=== PATIENT | male | born 1985 | race Caucasian/White ===

== ENCOUNTER 2017-11-01 18:39 | Emergency (ER) | payer OTHER ==
[~2017-11-01] VITALS: Ht 185.4 cm; Wt 108.9 kg
[~2017-11-01 18:39] MED LIST: AMOCLA875 PO; ANTOXYBENA LEFTEAR; BUTASPCAFT; CEPH500 PO; CYCL10 PO; Esgic Tablet1 EACH PO; HYDACE5 PO; HYDACE5325 PO; HYDR1TAB94 PO; IBUP600 PO; IBUP800; IBUP800 PO; ISODICACE PO; NAPR500 PO; Naprosyn500 MG PO; OXYACE5T PO; Omeprazole20 M1 PO; PENVK500; Percocet 5-3251 EACH PO; RXHYD5325 PO; SULTRIDS PO; SUMA6I; [UNRECOGNIZED DRUG - OTHER]; [UNRECOGNIZED DRUG - REMARK]
[2017-11-01] MEDS ORDERED: Citalopram HBr10 MG PO (19:16)
[2018-04-07] MEDS ORDERED: Protonix40 MG PO (13:34)
[2018-05-31] MEDS ORDERED: Norco 5-325 Ta1 EACH PO (18:44)
[2018-05-31] MEDS ORDERED: Silvadene20 GM TOP (18:44)
[2018-09-19] MEDS ORDERED: CITA20 PO (19:37)
[2018-09-19] MEDS ORDERED: Zofran Odt4 MG PO (22:52)
[2018-09-19] MEDS ORDERED: Esgic Tablet1 EACH PO (22:52)
[2018-10-02] MEDS ORDERED: Inderal60 MG (20:14)
== END 2017-11-01 20:45 | disposition home or self-care (01) ==
LOC: ER 18:39
DX: G43.909 Migraine, unspecified, not intractable, without status migrainosus (principal); Z88.8 Allergy status to other drugs, medicaments and biological substances; Z79.899 Other long term (current) drug therapy
CPT/HCPCS: 36415; 96361; 96374; 96375; 99283; J1200; J1885; J2765; J7030

== ENCOUNTER 2019-04-17 21:05 | Emergency (ER) | payer OTHER ==
[~2019-04-17] VITALS: Ht 185.4 cm; Wt 104.3 kg
[~2019-04-17 21:05] MED LIST changes: +CITA20 PO; +Citalopram HBr10 MG PO; +Inderal60 MG; +Norco 5-325 Ta1 EACH PO; +Protonix40 MG PO; +Silvadene20 GM TOP; +Zofran Odt4 MG PO
[2019-04-17] MEDS ORDERED: Esgic Tablet1 EACH PO (21:19)
[2019-04-17] MEDS ORDERED: NAPR500 PO (21:19)
[2019-04-17] MEDS ORDERED: CYCL10 PO (23:21)
== END 2019-04-17 23:37 | disposition home or self-care (01) ==
LOC: ER 21:05
DX: S39.012A Strain of muscle, fascia and tendon of lower back, initial encounter (principal); S46.911A Strain of unspecified muscle, fascia and tendon at shoulder and upper arm level, right arm, initial encounter; Z88.8 Allergy status to other drugs, medicaments and biological substances; X50.9XXA Other and unspecified overexertion or strenuous movements or postures, initial encounter
CPT/HCPCS: 71101; 72100; 73030; 99283-25; A9270

== ENCOUNTER 2019-04-30 10:20 | Emergency (ER) | payer OTHER ==
[~2019-04-30] VITALS: Ht 185.4 cm; Wt 104.3 kg
[2019-04-30] MEDS ORDERED: METPRE4DP PO (12:30)
== END 2019-04-30 12:35 | disposition home or self-care (01) ==
LOC: ER 10:20
DX: M54.12 Radiculopathy, cervical region (principal); Z88.8 Allergy status to other drugs, medicaments and biological substances; Z79.899 Other long term (current) drug therapy; G43.909 Migraine, unspecified, not intractable, without status migrainosus
CPT/HCPCS: 72125; 99285-25

== ENCOUNTER 2019-05-23 21:34 | Emergency (ER) | payer OTHER ==
[~2019-05-23] VITALS: Ht 185.4 cm; Wt 104.3 kg
[~2019-05-23 21:34] MED LIST changes: +METPRE4DP PO
[2019-05-23] MEDS ORDERED: Keflex500 MG PO (23:26)
== END 2019-05-23 23:47 | disposition home or self-care (01) ==
LOC: ER 21:34
DX: S62.635B Displaced fracture of distal phalanx of left ring finger, initial encounter for open fracture (principal); W22.8XXA Striking against or struck by other objects, initial encounter; Z88.8 Allergy status to other drugs, medicaments and biological substances; Z79.899 Other long term (current) drug therapy; G43.909 Migraine, unspecified, not intractable, without status migrainosus
CPT/HCPCS: 73130; 99283-25

== ENCOUNTER 2019-10-23 17:59 | Emergency (ER) | payer OTHER ==
[~2019-10-23] VITALS: Ht 185.4 cm; Wt 100.2 kg
[~2019-10-23 17:59] MED LIST changes: +Keflex500 MG PO
[2019-10-23 18:34] LABS: BASOPHILS ABSOLUTE AUTO 0.05 K/mm3 (0.00-0.23); BASOPHILS PERCENT AUTO 1 % (0-2); EOSINOPHILS ABSOLUTE AUTO 0.18 K/mm3 (0.00-0.68); EOSINOPHILS PERCENT AUTO 2 % (0-6); Hematocrit 46.8 % (37.0-53.0); Hemoglobin 15.5 g/dL (13.5-17.5); IMMATURE GRAN ABSOLUTE AUTO 0.02 K/mm3 (0.00-0.10); IMMATURE GRAN PERCENT AUTO 0 % (0-1); LYMPHOCYTES ABSOLUTE AUTO 2.35 K/mm3 (0.84-5.20); LYMPHOCYTES PERCENT AUTO 26 % (21-46); MONOCYTES ABSOLUTE AUTO 0.68 K/mm3 (0.16-1.47); MONOCYTES PERCENT AUTO 8 % (4-13); Mean Corpuscular HGB 28.2 pg (26.0-34.0); Mean Corpuscular HGB Conc 33.1 g/dL (31.5-36.5); Mean Corpuscular Volume 85 fL (80-100); Mean Platelet Volume 10.1 fL (9.1-12.4); NEUTROPHILS ABSOLUTE AUTO 5.84 K/mm3 (1.96-9.15); NEUTROPHILS PERCENT AUTO 64 % (41-73); Platelet Count 218 K/mm3 (150-400); RDW Coefficient Variation 12.7 % (11.7-14.2); RDW Standard Deviation 39.1 fL (35.1-46.3); White Blood Cell Count 9.12 K/mm3 (4.00-11.30)
[2019-10-23 18:57] LABS: Alanine Aminotransfer (ALT/SGP 43 U/L (12-78); Albumin, Blood 4.2 g/dL (3.4-5.0); Albumin/Globulin Ratio 1.2 (0.8-1.8); Alk Phos 78 U/L (50-136); Anion Gap 6 mmol/L (6-16); Aspartate Aminotrans (AST/SGOT 27 U/L (12-37); Bilirubin, Total 0.5 mg/dL (0.1-1.0); Blood Urea Nitrogen 27 mg/dL (8-24); Bun/Creatinine Ratio 24.5 (12.0-20.0); CO2, Blood 24 mmol/L (21-32); Calcium, Blood 8.8 mg/dL (8.5-10.1); Chloride, Blood 110 mmol/L (98-108); Globulin, Blood 3.6 g/dL (2.2-4.0); Glomerular Filtration Rate >60 (60-); Glucose, Blood 76 mg/dL (70-99); Potassium, Blood 3.9 mmol/L (3.5-5.5); Sodium, Blood 140 mmol/L (136-145); Total Protein, Blood 7.8 g/dL (6.4-8.2); Troponin I <0.015 ng/mL (0.000-0.040)
[2019-10-23] MEDS ORDERED: Ultram50 MG PO (21:40)
[2019-10-23] MEDS ORDERED: IBUP800 PO (21:40)
[2019-10-23] MEDS ORDERED: METPRE4DP PO (21:40)
== END 2019-10-23 22:04 | disposition home or self-care (01) ==
LOC: ER 17:59
PROVIDERS: Physician Assistant
DX: M54.14 Radiculopathy, thoracic region (principal); G43.909 Migraine, unspecified, not intractable, without status migrainosus; Z88.8 Allergy status to other drugs, medicaments and biological substances
CPT/HCPCS: 36415; 71046; 80053; 84484; 85025; 93005; 93010; 96374; 96375; 99285-25; J1885; J2270; J2405

== ENCOUNTER 2020-04-22 22:45 | Emergency (ER) | payer OTHER ==
[~2020-04-22] VITALS: Ht 185.4 cm; Wt 99.8 kg
[~2020-04-22 22:45] MED LIST changes: +Citalopram HBr20 MG; +Prednisone20 MG PO; +TOPI15C; +Ultram50 MG PO
[2020-04-22 23:51] LABS: Source, Urine Clean Catch
[2020-04-22 23:55] LABS: Bilirubin, Urine Neg (Neg); Blood, Urine 1+ (Neg); Glucose Qualitative, Urine Neg (Neg); Ketones, Urine Neg (Neg); Leukocyte Esterase, Urine 1+ (Neg); Nitrite, Urine Neg (Neg); Protein, Urine 2+ (Neg); Specific Gravity, Urine 1.025 (1.003-1.022); Urobilinogen, Urine NORM (Normal)
[2020-04-22 23:56] LABS: Appearance, Urine Clear (Clear); Color, Urine Yellow (P-Yellow)
[2020-04-23 00:02] LABS: Red Blood Cells, Urine 0-2 /hpf (0-2); Squamous Epithelial Cells Not Seen /hpf (Few)
[2020-04-23 00:03] LABS: Bacteria Mod /hpf; Mucus Heavy (0-Heavy)
[2020-04-23 00:34] LABS: BASOPHILS ABSOLUTE AUTO 0.04 K/mm3 (0.00-0.23); BASOPHILS PERCENT AUTO 1 % (0-2); EOSINOPHILS ABSOLUTE AUTO 0.32 K/mm3 (0.00-0.68); EOSINOPHILS PERCENT AUTO 5 % (0-6); Hematocrit 44.3 % (37.0-53.0); Hemoglobin 14.7 g/dL (13.5-17.5); IMMATURE GRAN ABSOLUTE AUTO 0.01 K/mm3 (0.00-0.10); IMMATURE GRAN PERCENT AUTO 0 % (0-1); LYMPHOCYTES ABSOLUTE AUTO 2.59 K/mm3 (0.84-5.20); LYMPHOCYTES PERCENT AUTO 36 % (21-46); MONOCYTES ABSOLUTE AUTO 0.65 K/mm3 (0.16-1.47); MONOCYTES PERCENT AUTO 9 % (4-13); Mean Corpuscular HGB 28.4 pg (26.0-34.0); Mean Corpuscular HGB Conc 33.2 g/dL (31.5-36.5); Mean Corpuscular Volume 86 fL (80-100); Mean Platelet Volume 10.4 fL (9.1-12.4); NEUTROPHILS ABSOLUTE AUTO 3.51 K/mm3 (1.96-9.15); NEUTROPHILS PERCENT AUTO 49 % (41-73); Platelet Count 220 K/mm3 (150-400); RDW Coefficient Variation 12.2 % (11.7-14.2); RDW Standard Deviation 38.3 fL (35.1-46.3); Red Blood Cell Count 5.17 M/mm3 (4.30-5.90); White Blood Cell Count 7.12 K/mm3 (4.00-11.30)
[2020-04-23 00:55] LABS: Alanine Aminotransfer (ALT/SGP 40 U/L (12-78); Albumin, Blood 4.2 g/dL (3.4-5.0); Albumin/Globulin Ratio 1.2 (0.8-1.8); Alk Phos 74 U/L (50-136); Anion Gap 4 mmol/L (6-16); Aspartate Aminotrans (AST/SGOT 25 U/L (12-37); Bilirubin, Total 0.2 mg/dL (0.1-1.0); Blood Urea Nitrogen 20 mg/dL (8-24); CO2, Blood 28 mmol/L (21-32); Calcium, Blood 8.9 mg/dL (8.5-10.1); Chloride, Blood 110 mmol/L (98-108); Creatinine, Blood 0.95 mg/dL (0.60-1.20); Globulin, Blood 3.5 g/dL (2.2-4.0); Glomerular Filtration Rate >60 (60-); Glucose, Blood 71 mg/dL (70-99); Potassium, Blood 3.7 mmol/L (3.5-5.5); Sodium, Blood 142 mmol/L (136-145); Total Protein, Blood 7.7 g/dL (6.4-8.2)
== END 2020-04-23 03:06 | disposition home or self-care (01) ==
LOC: ER 22:45
PROVIDERS: Physician Assistant
DX: R10.9 Unspecified abdominal pain (principal); Z88.8 Allergy status to other drugs, medicaments and biological substances; Z79.899 Other long term (current) drug therapy; G43.909 Migraine, unspecified, not intractable, without status migrainosus
CPT/HCPCS: 36415; 76770; 80053; 81001; 83690; 85025; 87086; 99284-25

== ENCOUNTER 2020-10-26 22:36 | Emergency (ER) | payer OTHER ==
[~2020-10-26] VITALS: Ht 185.4 cm; Wt 104.3 kg
[2020-10-27] MEDS ORDERED: IBUP800 PO (01:27)
[2020-10-27] MEDS ORDERED: Norco 5-325 Ta1 EACH PO (01:27)
== END 2020-10-27 01:39 | disposition home or self-care (01) ==
LOC: ER 22:36
DX: M54.2 Cervicalgia (principal); Z88.8 Allergy status to other drugs, medicaments and biological substances; Z79.899 Other long term (current) drug therapy
CPT/HCPCS: 72125; 96374; 96375; 99283-25; J1885; J2270; J2550

== ENCOUNTER 2020-10-27 14:15 | Emergency (ER) | payer OTHER ==
[~2020-10-27] VITALS: Ht 185.4 cm; Wt 104.3 kg
== END 2020-10-27 17:43 | disposition home or self-care (01) ==
LOC: ER 14:15
DX: G43.909 Migraine, unspecified, not intractable, without status migrainosus (principal); Z88.2 Allergy status to sulfonamides; Z79.899 Other long term (current) drug therapy
CPT/HCPCS: 96374; 96375; 99284-25; J0780; J1100; J1170; J1200; J1885; J7030

== ENCOUNTER 2020-12-14 22:40 | Emergency (ER) | payer OTHER ==
[~2020-12-14] VITALS: Ht 185.4 cm; Wt 113.4 kg
[~2020-12-14 22:40] MED LIST changes: -Citalopram HBr20 MG; +Citalopram HBr20 MG PO
[2020-12-15] MEDS ORDERED: BUTALB-ACETAMI1 EAC5 PO (00:34)
== END 2020-12-15 02:10 | disposition home or self-care (01) ==
LOC: ER 22:40
DX: G43.909 Migraine, unspecified, not intractable, without status migrainosus (principal); Z88.5 Allergy status to narcotic agent; Z79.899 Other long term (current) drug therapy
CPT/HCPCS: 96372; 99283; J0780; J1200; J1885

== ENCOUNTER 2021-01-18 13:01 | Emergency (ER) | payer OTHER ==
[~2021-01-18] VITALS: Ht 185.4 cm; Wt 106.6 kg
[~2021-01-18 13:01] MED LIST changes: +BUTALB-ACETAMI1 EAC5 PO
== END 2021-01-18 15:55 | disposition home or self-care (01) ==
LOC: ER 13:01
DX: G43.909 Migraine, unspecified, not intractable, without status migrainosus (principal)
CPT/HCPCS: 70450; 96361; 96374; 96375; 99284-25; J0780; J1100; J1200; J1885; J2060; J7030

== ENCOUNTER 2021-01-18 19:37 | Emergency (ER) | payer OTHER ==
[~2021-01-18] VITALS: Ht 185.4 cm; Wt 108.9 kg
[2021-01-18 20:29] LABS: Alanine Aminotransfer (ALT/SGP 44 U/L (12-78); Albumin, Blood 4.4 g/dL (3.4-5.0); Albumin/Globulin Ratio 1.2 (0.8-1.8); Alk Phos 83 U/L (50-136); Anion Gap 5 mmol/L (6-16); Aspartate Aminotrans (AST/SGOT 30 U/L (12-37); Bilirubin, Total 0.3 mg/dL (0.1-1.0); Blood Urea Nitrogen 19 mg/dL (8-24); Bun/Creatinine Ratio 26.3 (12.0-20.0); CO2, Blood 26 mmol/L (21-32); Calcium, Blood 9.4 mg/dL (8.5-10.1); Chloride, Blood 107 mmol/L (98-108); Creatinine, Blood 0.72 mg/dL (0.60-1.20); Globulin, Blood 3.7 g/dL (2.2-4.0); Glomerular Filtration Rate >60 (60-); Glucose, Blood 151 mg/dL (70-99); Potassium, Blood 4.6 mmol/L (3.5-5.5); Sodium, Blood 138 mmol/L (136-145); Total Protein, Blood 8.1 g/dL (6.4-8.2)
[2021-01-18 21:25] LABS: BASOPHILS ABSOLUTE AUTO 0.01 K/mm3 (0.00-0.23); BASOPHILS PERCENT AUTO 0 % (0-2); EOSINOPHILS PERCENT AUTO 0 % (0-6); Hematocrit 45.1 % (37.0-53.0); Hemoglobin 15.3 g/dL (13.5-17.5); IMMATURE GRAN ABSOLUTE AUTO 0.03 K/mm3 (0.00-0.10); IMMATURE GRAN PERCENT AUTO 0 % (0-1); LYMPHOCYTES ABSOLUTE AUTO 0.61 K/mm3 (0.84-5.20); LYMPHOCYTES PERCENT AUTO 6 % (21-46); MONOCYTES ABSOLUTE AUTO 0.09 K/mm3 (0.16-1.47); MONOCYTES PERCENT AUTO 1 % (4-13); Mean Corpuscular HGB 27.9 pg (26.0-34.0); Mean Corpuscular HGB Conc 33.9 g/dL (31.5-36.5); Mean Corpuscular Volume 82 fL (80-100); Mean Platelet Volume 10.5 fL (9.1-12.4); NEUTROPHILS ABSOLUTE AUTO 9.63 K/mm3 (1.96-9.15); NEUTROPHILS PERCENT AUTO 93 % (41-73); Platelet Count 200 K/mm3 (150-400); RDW Standard Deviation 36.5 fL (35.1-46.3); Red Blood Cell Count 5.48 M/mm3 (4.30-5.90); White Blood Cell Count 10.37 K/mm3 (4.00-11.30)
== END 2021-01-18 23:16 | disposition left against medical advice (07) ==
LOC: ER 19:37
PROVIDERS: Emergency Medicine
DX: R51.9 Headache, unspecified (principal); R50.9 Fever, unspecified; Z53.20 Procedure and treatment not carried out because of patient's decision for unspecified reasons
CPT/HCPCS: 36415; 71045; 80053; 85025; 96361; 96374; 96375; 99283-25; A9270; J0780; J1200; J1885; J7030

== ENCOUNTER → 2021-01-25 | Outpatient (CLI) | payer OTHER ==
[~2021-01-25] MED LIST changes: +TOPI50
[2021-01-27 16:24] LABS: CORONAVIRUS (COVID19) CSH-NRL Negative (Negative)
== END | disposition home or self-care (01) ==
LOC: LAB SHORT 17:58 → LAB 17:58
PROVIDERS: Physician Assistant Medical
DX: J01.90 Acute sinusitis, unspecified (principal); Z20.822 Contact with and (suspected) exposure to COVID-19
CPT/HCPCS: U0003

== ENCOUNTER 2021-02-17 00:19 | Emergency (ER) | payer OTHER ==
[~2021-02-17] VITALS: Ht 185.4 cm; Wt 108.0 kg
[~2021-02-17 00:19] MED LIST changes: -TOPI50
[2021-02-17] MEDS ORDERED: TOPI50 (01:14)
== END 2021-02-17 02:58 | disposition home or self-care (01) ==
LOC: ER 00:19
DX: S06.0X0A Concussion without loss of consciousness, initial encounter (principal); Z88.8 Allergy status to other drugs, medicaments and biological substances; Z88.5 Allergy status to narcotic agent; Z79.899 Other long term (current) drug therapy; W03.XXXA Other fall on same level due to collision with another person, initial encounter; Y93.72 Activity, wrestling
CPT/HCPCS: 99283

== ENCOUNTER → 2021-12-23 | Outpatient (CLI) | payer OTHER ==
[~2021-12-23] MED LIST changes: +MULTIPLE VITAM1 EACH PO; +Robaxin750 MG PO; +TOPI50
== END | disposition home or self-care (01) ==
LOC: LAB 19:10 → LAB SHORT 19:10
DX: L02.01 Cutaneous abscess of face (principal)
CPT/HCPCS: 87070; 87075; 87077; 87147; 87186; 87205

== ENCOUNTER 2022-05-01 21:51 | Emergency (ER) | payer OTHER ==
[~2022-05-01] VITALS: Ht 185.4 cm; Wt 102.5 kg
[2022-05-02] MEDS ORDERED: OXYC5 PO (00:24)
== END 2022-05-02 01:17 | disposition home or self-care (01) ==
LOC: ER 21:51
DX: S53.125A Posterior dislocation of left ulnohumeral joint, initial encounter (principal); S53.135A Medial dislocation of left ulnohumeral joint, initial encounter; X58.XXXA Exposure to other specified factors, initial encounter; Y93.72 Activity, wrestling
CPT/HCPCS: 73070; 73080; A9270; J1170; J2405; J2704; J7030

== ENCOUNTER 2023-05-21 22:56 | Emergency (ER) | payer OTHER ==
[~2023-05-21] VITALS: Ht 185.4 cm; Wt 99.8 kg
[~2023-05-21 22:56] MED LIST changes: +OXYC5 PO
[2023-05-22 01:00] VITALS: BP 132/97
== END 2023-05-22 01:37 | disposition home or self-care (01) ==
LOC: ER 22:56
DX: M26.602 Left temporomandibular joint disorder, unspecified (principal); Z88.5 Allergy status to narcotic agent; Z88.8 Allergy status to other drugs, medicaments and biological substances; X50.1XXA Overexertion from prolonged static or awkward postures, initial encounter
CPT/HCPCS: 99282; A9270

== ENCOUNTER 2023-10-29 18:06 | Emergency (ER) | payer OTHER ==
[~2023-10-29] VITALS: Ht 185.4 cm; Wt 99.8 kg
[2023-10-29 18:22] LABS: BASOPHILS ABSOLUTE AUTO 0.05 K/mm3 (0.00-0.23); BASOPHILS PERCENT AUTO 1 % (0-2); EOSINOPHILS ABSOLUTE AUTO 0.17 K/mm3 (0.00-0.68); EOSINOPHILS PERCENT AUTO 2 % (0-6); Hematocrit 40.9 % (37.0-53.0); IMMATURE GRAN ABSOLUTE AUTO 0.03 K/mm3 (0.00-0.10); IMMATURE GRAN PERCENT AUTO 0 % (0-1); LYMPHOCYTES ABSOLUTE AUTO 2.39 K/mm3 (0.84-5.20); LYMPHOCYTES PERCENT AUTO 31 % (21-46); MONOCYTES ABSOLUTE AUTO 0.54 K/mm3 (0.16-1.47); MONOCYTES PERCENT AUTO 7 % (4-13); Mean Corpuscular HGB 28.5 pg (26.0-34.0); Mean Corpuscular HGB Conc 34.2 g/dL (31.5-36.5); Mean Corpuscular Volume 83 fL (80-100); NEUTROPHILS ABSOLUTE AUTO 4.57 K/mm3 (1.96-9.15); NEUTROPHILS PERCENT AUTO 59 % (41-73); Platelet Count 209 K/mm3 (150-400); RDW Coefficient Variation 12.5 % (11.7-14.2); RDW Standard Deviation 37.8 fL (35.1-46.3); Red Blood Cell Count 4.91 M/mm3 (4.30-5.90); White Blood Cell Count 7.75 K/mm3 (4.00-11.30)
[2023-10-29 18:41] LABS: Albumin, Blood 3.6 g/dL (3.4-5.0); Albumin/Globulin Ratio 1.1 (0.8-1.8); Bilirubin, Total 0.2 mg/dL (0.1-1.0); Bun/Creatinine Ratio 23.5 (12.0-20.0); Calcium, Blood 7.9 mg/dL (8.5-10.1); Creatinine, Blood 0.77 mg/dL (0.60-1.20); Globulin, Blood 3.2 g/dL (2.2-4.0); Potassium, Blood 3.6 mmol/L (3.5-5.5); Total Protein, Blood 6.8 g/dL (6.4-8.2)
[2023-10-29 19:10] VITALS: BP 122/84
== END 2023-10-29 19:22 | disposition home or self-care (01) ==
LOC: ER 18:06
PROVIDERS: Emergency Medicine
DX: R55 Syncope and collapse (principal); R07.9 Chest pain, unspecified
CPT/HCPCS: 71045; 80053; 84484; 85025; 93005; 93010; 96374; 99284-25; J1885

== ENCOUNTER → 2024-10-25 | Outpatient (CLI) | payer OTHER ==
[~2024-10-25] MED LIST changes: +PROZAC2010 PO
[2024-10-25 14:37] LABS: BASOPHILS ABSOLUTE AUTO 0.03 K/mm3 (0.00-0.23); BASOPHILS PERCENT AUTO 0 % (0-2); EOSINOPHILS ABSOLUTE AUTO 0.09 K/mm3 (0.00-0.68); EOSINOPHILS PERCENT AUTO 1 % (0-6); Hematocrit 45.6 % (37.0-53.0); Hemoglobin 15.3 g/dL (13.5-17.5); IMMATURE GRAN ABSOLUTE AUTO 0.02 K/mm3 (0.00-0.10); IMMATURE GRAN PERCENT AUTO 0 % (0-1); LYMPHOCYTES ABSOLUTE AUTO 2.13 K/mm3 (0.84-5.20); LYMPHOCYTES PERCENT AUTO 30 % (21-46); MONOCYTES ABSOLUTE AUTO 0.57 K/mm3 (0.16-1.47); MONOCYTES PERCENT AUTO 8 % (4-13); Mean Corpuscular HGB 28.4 pg (26.0-34.0); Mean Corpuscular HGB Conc 33.6 g/dL (31.5-36.5); Mean Corpuscular Volume 85 fL (80-100); Mean Platelet Volume 10.1 fL (9.1-12.4); NEUTROPHILS ABSOLUTE AUTO 4.22 K/mm3 (1.96-9.15); NEUTROPHILS PERCENT AUTO 60 % (41-73); Platelet Count 205 K/mm3 (150-400); RDW Coefficient Variation 12.6 % (11.7-14.2); RDW Standard Deviation 38.5 fL (35.1-46.3); Red Blood Cell Count 5.39 M/mm3 (4.30-5.90); White Blood Cell Count 7.06 K/mm3 (4.00-11.30)
[2024-10-25 14:48] LABS: Albumin, Blood 4.1 g/dL (3.4-5.0); Albumin/Globulin Ratio 1.2 (0.8-1.8); Bilirubin, Total 0.5 mg/dL (0.1-1.0); Bun/Creatinine Ratio 14.3 (12.0-20.0); Calcium, Blood 8.9 mg/dL (8.5-10.1); Creatinine, Blood 0.98 mg/dL (0.60-1.20); Globulin, Blood 3.5 g/dL (2.2-4.0); Potassium, Blood 4.2 mmol/L (3.5-5.5); Total Protein, Blood 7.6 g/dL (6.4-8.2)
== END ==
LOC: LAB SHORT 14:12 → LAB 14:12
PROVIDERS: Physician Assistant
DX: R07.89 Other chest pain (principal)
CPT/HCPCS: 80053; 84484; 85025; 85651; 86140

== ENCOUNTER 2025-06-22 20:06 | Emergency (ER) | payer OTHER ==
[~2025-06-22] VITALS: Ht 185.4 cm; Wt 97.5 kg
[2025-06-22 22:30] VITALS: BP 137/81
[2025-06-22] MEDS ORDERED: IBUP600 PO (22:31)
[2025-06-22] MEDS ORDERED: ACET500 PO (22:31)
== END 2025-06-22 22:45 | disposition home or self-care (01) ==
LOC: ER 20:06
DX: S10.93XA Contusion of unspecified part of neck, initial encounter (principal); Z88.5 Allergy status to narcotic agent; Z79.899 Other long term (current) drug therapy; W17.89XA Other fall from one level to another, initial encounter
CPT/HCPCS: 70450; 72125; 99283-25

== ENCOUNTER 2025-06-27 11:53 | Emergency (ER) | payer OTHER ==
[~2025-06-27] VITALS: Ht 185.4 cm; Wt 97.5 kg
[~2025-06-27 11:53] MED LIST changes: +ACET500 PO
[2025-06-27 12:00] VITALS: BP 136/86
== END 2025-06-27 13:01 | disposition home or self-care (01) ==
LOC: ER 11:53
DX: S06.0XAA Concussion with loss of consciousness status unknown, initial encounter (principal); H57.89 Other specified disorders of eye and adnexa; W22.8XXA Striking against or struck by other objects, initial encounter; Z79.899 Other long term (current) drug therapy; Z88.5 Allergy status to narcotic agent; Z88.8 Allergy status to other drugs, medicaments and biological substances
CPT/HCPCS: 99282